=== PATIENT | female | born 1985 | race Caucasian/White ===

== ENCOUNTER 2022-02-06 07:40 | Observation (INO) | payer OTHER ==
[~2022-02-06] VITALS: Ht 154.9 cm; Wt 53.5 kg
[2022-02-06] VITALS (9 sets, daily range): BP systolic 95–101; BP diastolic 50–63; O2SAT 98
[~2022-02-06 07:40] MED LIST: COLL1CAP PO; CVS5000S2 SL; LIDOCAINE 2% 100MG/5ML SDV (FOR ANES.) As Ordered ONE; MIDAZOLAM INJ 2MG/2ML VIAL (J2250 PER 1MG) As Ordered ONE; ONDANSETRON 4MG 2ML VIAL As Ordered ONE; ROCURONIUM BROMIDE 50 MG/5 ML VIAL As Ordered ONE; SEVOFLURANE INHAL SOLN 250 ML BTL As Ordered ONE; ceFAZolin SOD 2 GM in IV 1 EA IV ONE; dexameTHASONE 4 MG/ML 1ML VIAL (J1100 PER 1MG) As Ordered ONE; fentaNYL 250 MCG/5 ML INJECTION As Ordered ONE; propofoL 200 MG/20 ML VIAL As Ordered ONE
[2022-02-06] MEDS ORDERED: BUPIVACAINE HCL 0.25% 10ML VIAL As Ordered ONE (08:01)
[2022-02-06] MEDS ORDERED: GENTAMICIN SULF 80MG/2ML VIAL As Ordered ONE ×2 (08:01→09:33)
[2022-02-06] MEDS ORDERED: BUPIVACAINE LIPOSOME/PF 1.3% 20ML VIAL (13.3MG/ML)(EXPAREL) As Ordered ONE (08:02)
[2022-02-06] MEDS ORDERED: LR 1,000 ML IV SCH ×2 (08:20→11:50)
[2022-02-06] MEDS ORDERED: SCOPOLAMINE 1MG TRANSDERMAL PATCH TOP ONE (08:20)
[2022-02-06] MEDS ORDERED: ePHEDrine SULFATE 25 MG/5 ML(5MG/ML) SYRINGE As Ordered ONE (08:58)
[2022-02-06] MEDS ORDERED: SUGAMMADEX SODIUM 500 MG/5 ML VIAL (BRIDION) As Ordered ONE (09:31)
[2022-02-06] MEDS ORDERED: ACETAMINOPHEN 1000MG 100ML IV BAG As Ordered ONE (09:32)
[2022-02-06] MEDS ORDERED: KETOROLAC 60MG 2ML VIAL As Ordered ONE (09:32)
[2022-02-06] MEDS ORDERED: ROCURONIUM BROMIDE 50 MG/5 ML VIAL As Ordered ONE (10:06)
[2022-02-06] MEDS ORDERED: propofoL 200 MG/20 ML VIAL As Ordered ONE (10:44)
[2022-02-06] MEDS ORDERED: METOCLOPRAMIDE INJ 10MG/2ML VIAL (J2765 PER 1) As Ordered ONE (11:09)
[2022-02-06] MEDS ORDERED: fentaNYL 100 MCG/2 ML INJECTION IV PRN (11:50)
[2022-02-06] MEDS ORDERED: MEPERIDINE INJ 25 MG/ML VIAL (J2175) IV PRN (11:50)
[2022-02-06] MEDS ORDERED: traMADol 50 MG TAB PO PRN (11:50)
[2022-02-06] MEDS ORDERED: METOCLOPRAMIDE INJ 10MG/2ML VIAL (J2765 PER 1) IV PRN (11:50)
[2022-02-06] MEDS ORDERED: ACETAMINOPHEN TAB 650MG DOSE (2X325MG) PO PRN (11:50)
[2022-02-06] MEDS ORDERED: oxyCODONE 5MG TAB PO PRN (11:50)
[2022-02-06] MEDS ORDERED: PERCOCET 5MG/325MG TAB PO PRN (11:50)
[2022-02-06] MEDS ORDERED: ONDANSETRON 4MG 2ML VIAL IV PRN ×2 (11:50)
[2022-02-06] MEDS ORDERED: HYDROMORPHONE HCL 0.5 MG/ 0.5 ML SYRINGE (J1170 PER 1) IV PRN (11:50)
[2022-02-06] MEDS ORDERED: PROMETHAZINE 25MG/ML 1ML VIAL IV PRN (11:50)
[2022-02-06] MEDS ORDERED: ceFAZolin SOD 2 GM in IV 1 EA IV ONE (13:00)
[2022-02-06] MEDS: LR 1,000 ML IV SCH (13:04)
[2022-02-07] MEDS: LR 1,000 ML IV SCH (00:35)
[2022-02-07 02:31] VITALS: BP 98/53
[2022-02-07 06:31] VITALS: BP 101/55
[2022-02-07 10:10] VITALS: BP 101/63
[2022-02-07] MEDS ORDERED: TRAM50TA2 PO (10:22)
== END 2022-02-07 11:55 | disposition home or self-care (01) ==
LOC: M SDC 07:40 → M ED INP 07:41 → EDUNIT# 09:15 → M MS5PR 12:35
PROVIDERS: ADMIT Plastic Surgery Surgery of the Hand; ATTEND Plastic Surgery Surgery of the Hand
DX: T85.41XA Breakdown (mechanical) of breast prosthesis and implant, initial encounter (principal); Z85.3 Personal history of malignant neoplasm of breast
CPT/HCPCS: 19328; 19330; 19380; 81025; 87070; 87075; 88300; 88302; 88305; 96365; 96375; 96376; C9290; J0131; J0690; J1100; J1580; J1885; J2250; J2405; J2765; J3010; L8600